=== PATIENT | male | born 1990 | race Caucasian/White ===

== ENCOUNTER 2020-09-14 10:32 | Emergency (ER) | payer OTHER ==
[~2020-09-14] VITALS: Ht 195.6 cm; Wt 108.9 kg
[2020-09-14 10:47] VITALS: BP 108/71
--- NOTE | 2020-09-14 10:56 | NUR ---
Nisreen russo in [facility] - 09/14/20 at 1100 by [email or web address] PT W/C ASSISTED TO BED 12
--- NOTE | 2020-09-14 11:00 | NUR ---
Patient ambulated to bed 12. RN evaluating the patient at bedside.
--- NOTE | 2020-09-14 11:02 | NUR ---
29 Y/O MALE C/O LLE DISCOMFORT, PATIENT STATES THAT HE NOTICED BLISTERS ON LEFT FOOT LAST WEEK AND THEY HAVE BECOME MORE SWOLLEN AND ARE CAUSING PAIN. REDNESS AND SWELLING NOTED, NO DRAINAGE NOTED AT THIS TIME, PATIENT STATES THAT SOMETIMES HE NOTICES IT WILL DRAIN BUT NOT IN LARGE AMOUNTS. DENIES ANY FEVER/CHILLS.
--- NOTE | 2020-09-14 11:05 | NUR ---
DR GREY AT BEDSIDE EXAMINING PATIENT
[2020-09-14] MEDS ORDERED: NACL 0.9% 1,000 ML IV ONE (11:10)
[2020-09-14] MEDS ORDERED: ceFAZolin 1,000 MG VIAL ONE (11:13)
[2020-09-14 11:27] LABS: HEMATOCRIT 40.3 % (36-52); MEAN CORPUSCULAR HEMOGLOBIN 31 pg (27-31); MEAN CORPUSCULAR HGB CONC 35 g/dL (33-37); MEAN CORPUSCULAR VOLUME 90.3 fL (80-94); PLATELET COUNT (AUTO) 139 K/uL (140-450); RED BLOOD CELL COUNT(AUTO) 4.46 MIL/uL (4.20-6.10); RED CELL DISTRIBUTION WIDTH 13.3 % (11.6-13.7); WHITE BLOOD COUNT (AUTO) 11.4 K/uL (4.8-10.8)
[2020-09-14 11:35] LABS: ANION GAP 14.7 (8-16); CARBON DIOXIDE 26.5 mmol/L (21-32); CREATININE 0.8 mg/dL (0.6-1.3); POTASSIUM 3.2 mmol/L (3.5-5.1)
[2020-09-14 12:00] LABS: LYMPHOCYTES % (MANUAL) 9 % (20-46); MONOCYTES % (MANUAL) 7 % (5-12)
[2020-09-14] MEDS ORDERED: IBUP-1842 PO (12:43)
[2020-09-14] MEDS ORDERED: SULF-59 PO (12:43)
[2020-09-14] MEDS ORDERED: CEPH-588 PO (12:43)
[2020-09-14 12:48] VITALS: BP 108/71
--- NOTE | 2020-09-14 12:49 | NUR ---
Patient discharged with v/s stable. Written and verbal after care instructions given and explained. Patient alert, oriented and verbalized understanding of instructions. Ambulatory with steady gait. All questions addressed prior to discharge. ID band removed. Patient advised to follow up with PMD. Rx of KEFLEX, IBUPROFEN, BACTRIM given. Patient educated on indication of medication including possible reaction and side effects. Opportunity to ask questions provided and answered.
== END 2020-09-14 12:49 | disposition home or self-care (01) ==
LOC: MED 10:32
DX: L03.116 Cellulitis of left lower limb (principal); F15.10 Other stimulant abuse, uncomplicated
CPT/HCPCS: 36415; 80048; 83605; 85025; 87040; 90471; 90715; 96365; 99284; J0690; J7030